=== PATIENT | female | born 1980 | race Two or more races ===

== ENCOUNTER 2017-04-03 10:08 | Outpatient (CLI) | payer OTHER ==
[~2017-04-03 10:08] MED LIST: CLARITIN-D 121 EACH PO; MOTRIN800 MG PO; MULTIVITAMIN1 CAP PO; SEPTRA DS TABLE1 TAB PO; SYNTHROID125 MCG; SYNTHROID150 MCG; TUSSI PRES-B L120 M1 PO; ZITHROMAX TRI-500 MG PO
== END 2017-04-03 10:11 | disposition home or self-care (01) ==
LOC: LAB 10:08
DX: E89.0 Postprocedural hypothyroidism (principal); C73 Malignant neoplasm of thyroid gland

== ENCOUNTER → 2017-05-14 | Emergency (ER) | payer OTHER ==
[~2017-05-14] VITALS: Ht 157.5 cm; Wt 63.5 kg
== END | disposition home or self-care (01) ==
LOC: ER 14:12
DX: M94.0 Chondrocostal junction syndrome [Tietze] (principal)

== ENCOUNTER 2017-08-04 11:17 | Outpatient (CLI) | payer OTHER | END 2017-08-04 11:20 | disposition home or self-care (01) | LOC: LAB 11:17 | DX: D64.89 Other specified anemias (principal); E11.9 Type 2 diabetes mellitus without complications; E78.2 Mixed hyperlipidemia; I10 Essential (primary) hypertension; E03.8 Other specified hypothyroidism ==

== ENCOUNTER 2017-10-20 08:07 | Outpatient (CLI) | payer OTHER | END 2017-10-20 08:50 | disposition home or self-care (01) | LOC: LAB 08:07 | DX: C73 Malignant neoplasm of thyroid gland (principal); E89.0 Postprocedural hypothyroidism ==

== ENCOUNTER → 2017-12-15 07:33 | Outpatient (CLI) | payer OTHER | END | disposition home or self-care (01) | LOC: LAB 07:33 | DX: C73 Malignant neoplasm of thyroid gland (principal); E89.0 Postprocedural hypothyroidism ==

== ENCOUNTER 2017-12-15 07:52 | Outpatient (CLI) | payer OTHER | END 2017-12-15 08:00 | disposition home or self-care (01) | LOC: SONOGRAMA 07:52 → MAMO-SONO 09:45 | DX: C73 Malignant neoplasm of thyroid gland (principal) ==

== ENCOUNTER 2018-04-23 10:13 | Outpatient (CLI) | payer OTHER | END 2018-04-23 11:58 | disposition HB | LOC: LAB 10:13 | DX: D64.89 Other specified anemias (principal); E78.2 Mixed hyperlipidemia; E03.8 Other specified hypothyroidism ==

== ENCOUNTER 2018-11-26 09:13 | Outpatient (CLI) | payer OTHER | END 2018-11-26 09:18 | disposition home or self-care (01) | LOC: LAB 09:13 | DX: D64.89 Other specified anemias (principal); E11.9 Type 2 diabetes mellitus without complications; E78.2 Mixed hyperlipidemia; I10 Essential (primary) hypertension; E03.8 Other specified hypothyroidism ==

== ENCOUNTER → 2019-01-11 09:22 | Outpatient (CLI) | payer OTHER | END | disposition home or self-care (01) | LOC: LAB 09:22 | DX: E89.0 Postprocedural hypothyroidism (principal); C73 Malignant neoplasm of thyroid gland ==

== ENCOUNTER → 2019-01-11 | Outpatient (CLI) | payer OTHER | END | disposition home or self-care (01) | LOC: MAMO-SONO 09:45 → SONOGRAMA 11:49 | DX: C73 Malignant neoplasm of thyroid gland (principal) ==

== ENCOUNTER 2019-04-18 10:06 | Emergency (ER) | payer OTHER ==
[~2019-04-18] VITALS: Ht 157.5 cm; Wt 64.4 kg
[2019-04-18] MEDS ORDERED: SYNTHROID137 MCG PO (10:42)
== END 2019-04-18 14:50 | disposition home or self-care (01) ==
LOC: ER 10:06
DX: B34.9 Viral infection, unspecified (principal)

== ENCOUNTER 2019-06-11 08:32 | Outpatient (CLI) | payer OTHER ==
[~2019-06-11 08:32] MED LIST changes: +SYNTHROID137 MCG PO
== END 2019-06-11 08:38 | disposition home or self-care (01) ==
LOC: LAB 08:32
DX: D64.89 Other specified anemias (principal); E11.9 Type 2 diabetes mellitus without complications; E78.2 Mixed hyperlipidemia; E03.8 Other specified hypothyroidism; I10 Essential (primary) hypertension

== ENCOUNTER 2019-06-24 16:09 | Emergency (ER) | payer OTHER ==
[~2019-06-24] VITALS: Ht 157.5 cm; Wt 63.5 kg
== END 2019-06-24 20:49 | disposition home or self-care (01) ==
LOC: ER 16:09
DX: M54.89 Other dorsalgia (principal); R07.89 Other chest pain; F06.4 Anxiety disorder due to known physiological condition

== ENCOUNTER 2019-07-02 08:28 | Outpatient (CLI) | payer OTHER | END 2019-07-02 08:51 | disposition home or self-care (01) | LOC: MAMO-SONO 08:28 | DX: R10.84 Generalized abdominal pain (principal); Z12.31 Encounter for screening mammogram for malignant neoplasm of breast ==

== ENCOUNTER 2019-10-25 09:30 | Emergency (ER) | payer OTHER ==
[~2019-10-25] VITALS: Ht 152.4 cm; Wt 72.6 kg
[2019-10-25] MEDS ORDERED: KETO10TA2 PO (11:51)
[2019-10-25] MEDS ORDERED: ZANAFLEX4 M1 PO (11:51)
== END 2019-10-25 11:54 | disposition home or self-care (01) ==
LOC: ER 09:30
DX: M25.511 Pain in right shoulder (principal); M79.631 Pain in right forearm

== ENCOUNTER 2019-11-11 08:41 | Outpatient (CLI) | payer OTHER ==
[~2019-11-11 08:41] MED LIST changes: +KETO10TA2 PO; +ZANAFLEX4 M1 PO
== END 2019-11-11 08:48 | disposition home or self-care (01) ==
LOC: LAB 08:41
PROVIDERS: ATTEND Internal Medicine Sports Medicine
DX: E89.0 Postprocedural hypothyroidism (principal)

== ENCOUNTER → 2019-12-01 09:45 | Outpatient (CLI) | payer OTHER | END | disposition home or self-care (01) | LOC: LAB 11-30 11:29 | PROVIDERS: ATTEND Emergency Medicine Pediatric Emergency Medicine | DX: R05 Cough (principal); Z03.818 Encounter for observation for suspected exposure to other biological agents ruled out; R50.9 Fever, unspecified; R06.02 Shortness of breath ==

== ENCOUNTER → 2020-02-10 09:37 | Outpatient (CLI) | payer OTHER | END | disposition home or self-care (01) | LOC: LAB 09:37 | PROVIDERS: ATTEND Internal Medicine Sports Medicine | DX: E89.0 Postprocedural hypothyroidism (principal) ==

== ENCOUNTER 2020-04-05 08:17 | Outpatient (CLI) | payer OTHER | END 2020-04-05 08:29 | disposition home or self-care (01) | LOC: SONOGRAMA 08:17 | PROVIDERS: ATTEND Internal Medicine Sports Medicine | DX: Z12.31 Encounter for screening mammogram for malignant neoplasm of breast (principal) ==

== ENCOUNTER 2020-04-07 18:50 | Emergency (ER) | payer OTHER ==
[~2020-04-07] VITALS: Ht 127 cm; Wt 68.0 kg
== END 2020-04-07 21:24 | disposition home or self-care (01) ==
LOC: ER 18:50
DX: R51.9 Headache, unspecified (principal)

== ENCOUNTER 2020-06-07 07:56 | Outpatient (CLI) | payer OTHER | END 2020-06-07 08:00 | disposition home or self-care (01) | LOC: LAB 07:56 | PROVIDERS: ATTEND Internal Medicine Sports Medicine | DX: D64.89 Other specified anemias (principal); E11.9 Type 2 diabetes mellitus without complications; I10 Essential (primary) hypertension; E78.2 Mixed hyperlipidemia; E03.8 Other specified hypothyroidism ==

== ENCOUNTER 2020-11-22 14:48 | Emergency (ER) | payer OTHER ==
[~2020-11-22] VITALS: Ht 157.5 cm; Wt 68.9 kg
[2020-11-22] MEDS ORDERED: PANADOL (15:21)
[2020-11-22] MEDS ORDERED: DOLOGEN CAPLET1 EACH PO (17:16)
[2020-11-22] MEDS ORDERED: ZYRTEC10 MG PO (17:16)
[2020-11-22] MEDS ORDERED: TUSNEL LIQUID178 ML PO (17:16)
== END 2020-11-22 17:34 | disposition home or self-care (01) ==
LOC: ER 14:48
DX: J00 Acute nasopharyngitis [common cold] (principal); B34.9 Viral infection, unspecified; Z03.818 Encounter for observation for suspected exposure to other biological agents ruled out

== ENCOUNTER → 2020-11-23 12:04 | Outpatient (CLI) | payer OTHER ==
[~2020-11-23 12:04] MED LIST changes: +DOLOGEN CAPLET1 EACH PO; +PANADOL; +TUSNEL LIQUID178 ML PO; +ZYRTEC10 MG PO
== END | disposition home or self-care (01) ==
LOC: LAB 12:04
PROVIDERS: ATTEND Internal Medicine Sports Medicine
DX: E89.0 Postprocedural hypothyroidism (principal)

== ENCOUNTER 2021-01-10 06:47 | Outpatient (CLI) | payer OTHER | END 2021-01-10 06:53 | disposition home or self-care (01) | LOC: LAB 06:47 | PROVIDERS: ATTEND Internal Medicine Sports Medicine | DX: E89.0 Postprocedural hypothyroidism (principal) ==

== ENCOUNTER 2021-01-16 11:21 | Outpatient (CLI) | payer OTHER | END 2021-01-16 11:40 | disposition home or self-care (01) | LOC: SONOGRAMA 11:21 | PROVIDERS: ATTEND Internal Medicine Sports Medicine | DX: C73 Malignant neoplasm of thyroid gland (principal) ==

== ENCOUNTER 2021-03-19 01:00 | Outpatient (CLI) | payer OTHER | END 2021-03-19 01:30 | disposition home or self-care (01) | LOC: PPH VACUNA 01:00 | PROVIDERS: ATTEND Emergency Medicine Pediatric Emergency Medicine | DX: Z23 Encounter for immunization (principal) ==

== ENCOUNTER 2021-07-17 10:04 | Outpatient (CLI) | payer OTHER | END 2021-07-17 10:08 | disposition home or self-care (01) | LOC: LAB 10:04 | PROVIDERS: ATTEND Internal Medicine Sports Medicine | DX: C73 Malignant neoplasm of thyroid gland (principal); E89.0 Postprocedural hypothyroidism ==

== ENCOUNTER 2021-12-20 07:11 | Outpatient (CLI) | payer OTHER | END 2021-12-20 07:18 | disposition home or self-care (01) | LOC: MAMO-SONO 07:11 | PROVIDERS: ATTEND Internal Medicine Sports Medicine | DX: Z12.31 Encounter for screening mammogram for malignant neoplasm of breast (principal) ==

== ENCOUNTER → 2021-12-20 10:03 | Outpatient (CLI) | payer OTHER | END | disposition home or self-care (01) | LOC: LAB 10:03 | PROVIDERS: ATTEND Internal Medicine Sports Medicine | DX: C73 Malignant neoplasm of thyroid gland (principal); E89.0 Postprocedural hypothyroidism ==

== ENCOUNTER 2022-03-21 02:44 | Emergency (ER) | payer OTHER ==
[~2022-03-21] VITALS: Ht 154.9 cm; Wt 68.9 kg
[2022-03-21] MEDS ORDERED: KETO10TA2 PO (05:54)
== END 2022-03-21 06:07 ==
LOC: ER 02:44
DX: R07.89 Other chest pain (principal)

== ENCOUNTER 2022-05-05 12:20 | Emergency (ER) | payer OTHER ==
[~2022-05-05] VITALS: Ht 162.6 cm; Wt 76.7 kg
== END 2022-05-05 14:34 | disposition home or self-care (01) ==
LOC: ER 12:20
DX: J02.9 Acute pharyngitis, unspecified (principal); E03.9 Hypothyroidism, unspecified

== ENCOUNTER → 2022-06-20 06:13 | Outpatient (CLI) | payer OTHER | END | disposition home or self-care (01) | LOC: LAB 06:13 | PROVIDERS: ATTEND Internal Medicine Sports Medicine | DX: D64.9 Anemia, unspecified (principal); E11.9 Type 2 diabetes mellitus without complications; E78.2 Mixed hyperlipidemia; I10 Essential (primary) hypertension; E03.8 Other specified hypothyroidism ==

== ENCOUNTER 2022-09-28 13:59 | Emergency (ER) | payer OTHER ==
[~2022-09-28] VITALS: Ht 154.9 cm; Wt 73.5 kg
== END 2022-09-28 16:39 | disposition home or self-care (01) ==
LOC: ER 13:59
DX: M94.0 Chondrocostal junction syndrome [Tietze] (principal); K29.70 Gastritis, unspecified, without bleeding

== ENCOUNTER 2022-11-29 08:15 | Outpatient (CLI) | payer OTHER | END 2022-11-29 08:16 | disposition home or self-care (01) | LOC: SONOGRAMA 08:15 | PROVIDERS: ATTEND Internal Medicine Sports Medicine | DX: C73 Malignant neoplasm of thyroid gland (principal); E08.9 Diabetes mellitus due to underlying condition without complications ==

== ENCOUNTER 2022-11-29 08:57 | Outpatient (CLI) | payer OTHER ==
[2022-11-29 10:18] LABS: T4 FREE 1.28 NG/ML (0.76-1.46); TSH 0.693 uIU/mL (0.358-3.74)
== END 2022-11-29 09:04 | disposition home or self-care (01) ==
LOC: LAB 08:57
PROVIDERS: ATTEND Internal Medicine Sports Medicine
DX: C73 Malignant neoplasm of thyroid gland (principal); E89.0 Postprocedural hypothyroidism

== ENCOUNTER 2023-05-27 06:18 | Outpatient (CLI) | payer OTHER ==
[2023-05-27 07:31] LABS: HEMATOCRIT 36.7 % (36.0-45.00); HEMOGLOBIN 12.3 g/dL (12.0-15.00); MEAN CELL VOLUME 82.4 fL (80.00-100.00); MEAN CORPUSCULAR HEMOGLOBIN 27.5 pg (27.00-32.0); MEAN CORPUSCULAR HGB CONC 33.4 g/dl (32.0-36.0); PLATELET COUNT 380 K/uL (150-450); RED BLOOD COUNT 4.46 M/uL (4.00-6.00); RED CELL DISTRIBUTION WIDTH 15.7 % (11.5-14.5)
[2023-05-27 07:34] LABS: URINE APPEARANCE Clear; URINE BILIRRUBIN Negative (NEGATIVE); URINE BLOOD Moderate; URINE COLOR Yellow; URINE GLUCOSE Negative (NEGATIVE); URINE LEUKOCYTE Trace; URINE NITRATE Negative; URINE PROTEIN Negative (NEGATIVE); URINE UROBILINOGEN 0.2 E.U./dl
[2023-05-27 07:36] LABS: URINE EPITHELIAL CELLS 16.3 uL (0.0-38.8); URINE RBC 10.7 uL (0.0-20.8); URINE WBC 5.2 uL (0.0-23.2)
[2023-05-27 08:07] LABS: ALBUMIN 3.5 gm/dL (3.4-5.0); BILIRUBIN TOTAL 0.38 mg/dL (0.3-1.2); CALCIUM 8.9 mg/dL (8.5-10.1); CHOL HDL RATIO 3.7 (0-5.0); CREATININE SERUM 0.82 mg/dL (0.55-1.02); GFR 77.21; GLOBULINA 4.1 G/DL (2.4-3.5); POTASSIUM 4.07 mEq/L (3.5-5.1); T4 FREE 1.23 NG/ML (0.76-1.46); TOTAL PROTEIN 7.6 gm/dL (6.4-8.2); TSH 1.59 uIU/mL (0.358-3.74)
== END 2023-05-27 06:19 | disposition home or self-care (01) ==
LOC: LAB 06:18
PROVIDERS: ATTEND Internal Medicine Sports Medicine
DX: D64.9 Anemia, unspecified (principal); E11.9 Type 2 diabetes mellitus without complications; E78.2 Mixed hyperlipidemia; I10 Essential (primary) hypertension; E03.8 Other specified hypothyroidism

== ENCOUNTER 2023-09-01 09:04 | Outpatient (CLI) | payer OTHER | END 2023-09-01 09:11 | disposition home or self-care (01) | LOC: MAMO-SONO 09:04 | PROVIDERS: ATTEND Internal Medicine Sports Medicine | DX: N91.1 Secondary amenorrhea (principal); Z12.31 Encounter for screening mammogram for malignant neoplasm of breast ==

== ENCOUNTER 2023-09-01 11:06 | Outpatient (CLI) | payer OTHER ==
[2023-09-01 12:16] LABS: HEMATOCRIT 36.4 % (36.0-45.00); HEMOGLOBIN 12.3 g/dL (12.0-15.00); MEAN CELL VOLUME 83.2 fL (80.00-100.00); MEAN CORPUSCULAR HEMOGLOBIN 28.2 pg (27.00-32.0); MEAN CORPUSCULAR HGB CONC 33.9 g/dl (32.0-36.0); PLATELET COUNT 386 K/uL (150-450); RED BLOOD COUNT 4.37 M/uL (4.00-6.00); RED CELL DISTRIBUTION WIDTH 15.2 % (11.5-14.5)
[2023-09-01 12:44] LABS: FERRITIN 17.1 NG/ML (8-252)
== END 2023-09-01 11:11 | disposition home or self-care (01) ==
LOC: LAB 11:06
PROVIDERS: ATTEND Obstetrics & Gynecology
DX: D64.9 Anemia, unspecified (principal); N91.1 Secondary amenorrhea

== ENCOUNTER 2023-09-25 09:06 | Outpatient (CLI) | payer OTHER | END 2023-09-25 09:25 | disposition home or self-care (01) | LOC: SONOGRAMA 09:06 | PROVIDERS: ATTEND Obstetrics & Gynecology | DX: N84.0 Polyp of corpus uteri (principal) ==

== ENCOUNTER 2023-10-06 08:02 | Outpatient (CLI) | payer OTHER ==
[2023-10-06 08:53] LABS: PH,URINE 6.5 (5.0-8.0); URINE APPEARANCE Clear; URINE BILIRRUBIN Negative (NEGATIVE); URINE BLOOD Negative; URINE COLOR Yellow; URINE GLUCOSE Negative (NEGATIVE); URINE KETONE Negative (NEGATIVE); URINE LEUKOCYTE Negative; URINE NITRATE Negative; URINE PROTEIN Negative (NEGATIVE); URINE UROBILINOGEN 0.2 E.U./dl
[2023-10-06 08:55] LABS: URINE BACTERIA 45.3 uL (0.0-1933); URINE EPITHELIAL CELLS 5.3 uL (0.0-38.8); URINE RBC 4.8 uL (0.0-20.8)
[2023-10-06 08:58] LABS: URINE WBC 0.9 uL (0.0-23.2)
[2023-10-06 09:04] LABS: HEMATOCRIT 34.8 % (36.0-45.00); HEMOGLOBIN 11.4 g/dL (12.0-15.00); MEAN CELL VOLUME 83.4 fL (80.00-100.00); MEAN CORPUSCULAR HEMOGLOBIN 27.4 pg (27.00-32.0); MEAN CORPUSCULAR HGB CONC 32.8 g/dl (32.0-36.0); PLATELET COUNT 352 K/uL (150-450); RED BLOOD COUNT 4.17 M/uL (4.00-6.00); RED CELL DISTRIBUTION WIDTH 15.4 % (11.5-14.5)
[2023-10-06 09:18] LABS: INR 0.98; PARTIAL THROMBOPLASTIN TIME 29.7 SECONDS (22.0-34.0); PROTHROMBIN TIME 10.3 SECONDS (9.0-11.5)
[2023-10-06 10:26] LABS: ALBUMIN 3.5 gm/dL (3.4-5.0); BILIRUBIN TOTAL 0.29 mg/dL (0.3-1.2); CALCIUM 8.8 mg/dL (8.5-10.1); CREATININE SERUM 0.66 mg/dL (0.55-1.02); GFR 99.19; GLOBULINA 3.5 G/DL (2.4-3.5)
[2023-10-06 12:56] LABS: TSH 0.156 uIU/mL (0.358-3.74)
== END 2023-10-06 14:55 | disposition home or self-care (01) ==
LOC: LAB 08:02
PROVIDERS: ATTEND Obstetrics & Gynecology
DX: D64.9 Anemia, unspecified (principal); N39.0 Urinary tract infection, site not specified; N91.1 Secondary amenorrhea; E13.9 Other specified diabetes mellitus without complications; E78.9 Disorder of lipoprotein metabolism, unspecified; G30.9 Alzheimer's disease, unspecified

== ENCOUNTER 2023-10-06 08:27 | Outpatient (CLI) | payer OTHER | END 2023-10-06 08:33 | disposition home or self-care (01) | LOC: RAD 08:27 | PROVIDERS: ATTEND Obstetrics & Gynecology | DX: J06.9 Acute upper respiratory infection, unspecified (principal) ==

== ENCOUNTER 2023-10-15 08:52 | Day surgery (SDC) | payer OTHER ==
[2023-10-15] MEDS ORDERED: POVIDONE-IODINE 118 ML BOTT TOP ONE (13:49)
[2023-10-15] MEDS ORDERED: MEPERIDINE HCL/PF 50 MG/ML VIAL IM PRN (16:15)
[2023-10-15] MEDS ORDERED: PROMETHAZINE HCL 50 MG/ML AMPUL IM PRN (16:15)
== END 2023-10-15 21:30 | disposition home or self-care (01) ==
LOC: CIR.AMB 08:52
PROVIDERS: ATTEND Obstetrics & Gynecology
DX: N84.0 Polyp of corpus uteri (principal); N92.0 Excessive and frequent menstruation with regular cycle; I49.9 Cardiac arrhythmia, unspecified; G43.909 Migraine, unspecified, not intractable, without status migrainosus; E03.9 Hypothyroidism, unspecified

== ENCOUNTER 2023-12-10 09:11 | Outpatient (CLI) | payer OTHER ==
[2023-12-10 11:23] LABS: T4 FREE 1.13 NG/ML (0.76-1.46)
[2023-12-10 11:52] LABS: TSH 0.216 uIU/mL (0.358-3.74)
== END 2023-12-10 09:13 | disposition home or self-care (01) ==
LOC: LAB 09:11
PROVIDERS: ATTEND Internal Medicine Sports Medicine
DX: E08.9 Diabetes mellitus due to underlying condition without complications (principal); C73 Malignant neoplasm of thyroid gland

== ENCOUNTER 2024-12-14 08:34 | Outpatient (CLI) | payer OTHER | END 2024-12-14 08:35 | disposition home or self-care (01) | LOC: MAMO-SONO 08:34 | PROVIDERS: ATTEND Internal Medicine Sports Medicine | DX: C73 Malignant neoplasm of thyroid gland (principal); Z12.39 Encounter for other screening for malignant neoplasm of breast ==

== ENCOUNTER → 2024-12-14 09:33 | Outpatient (CLI) | payer OTHER ==
[2024-12-14 10:55] LABS: T4 FREE 1.06 NG/ML (0.76-1.46); TSH 0.749 uIU/mL (0.358-3.74)
== END | disposition home or self-care (01) ==
LOC: LAB 09:33
PROVIDERS: ATTEND Internal Medicine Sports Medicine
DX: C73 Malignant neoplasm of thyroid gland (principal); E89.0 Postprocedural hypothyroidism